=== PATIENT | female | born 1995 | race Two or more races ===

== ENCOUNTER 2024-05-28 08:03 | Emergency (ER) | payer OTHER ==
[~2024-05-28] VITALS: Ht 165.1 cm; Wt 72.6 kg
[2024-05-28 08:12] VITALS: BP 101/69; O2SAT 100
[2024-05-28 08:56] LABS: HEMATOCRIT 36.5 % (36.0-45.00); HEMOGLOBIN 12.4 g/dL (12.0-15.00); MEAN CELL VOLUME 93.8 fL (80.00-100.00); MEAN CORPUSCULAR HEMOGLOBIN 31.9 pg (27.00-32.0); PLATELET COUNT 183 K/uL (150-450); RED BLOOD COUNT 3.89 M/uL (4.00-6.00); RED CELL DISTRIBUTION WIDTH 12.8 % (11.5-14.5)
[2024-05-28 09:47] LABS: CALCIUM 8.8 mg/dL (8.5-10.1); CREATININE SERUM 0.67 mg/dL (0.55-1.02); GFR 104.06; POTASSIUM 3.69 mEq/L (3.5-5.1)
[2024-05-28 10:37] LABS: URINE APPEARANCE Clear; URINE BILIRRUBIN Negative (NEGATIVE); URINE BLOOD Moderate; URINE COLOR Yellow; URINE GLUCOSE Negative (NEGATIVE); URINE KETONE Negative (NEGATIVE); URINE LEUKOCYTE Trace; URINE NITRATE Negative; URINE PROTEIN Negative (NEGATIVE)
[2024-05-28 10:40] LABS: URINE BACTERIA 1702.5 uL (0.0-1933); URINE EPITHELIAL CELLS 14.2 uL (0.0-38.8); URINE RBC 9.7 uL (0.0-20.8); URINE WBC 20.4 uL (0.0-23.2)
[2024-05-28 10:55] LABS: URINE CAST 0.88 uL (0.0-1.40)
== END 2024-05-28 13:03 | disposition home or self-care (01) ==
LOC: ER 08:05
PROVIDERS: General Practice
DX: O20.8 Other hemorrhage in early pregnancy (principal); Z3A.01 Less than 8 weeks gestation of pregnancy

== ENCOUNTER 2024-06-01 15:10 | Emergency (ER) | payer OTHER ==
[~2024-06-01] VITALS: Ht 165.1 cm; Wt 72.6 kg
[2024-06-01 16:47] LABS: HEMATOCRIT 35.7 % (36.0-45.00); HEMOGLOBIN 12.3 g/dL (12.0-15.00); MEAN CELL VOLUME 93.5 fL (80.00-100.00); MEAN CORPUSCULAR HEMOGLOBIN 32.3 pg (27.00-32.0); MEAN CORPUSCULAR HGB CONC 34.5 g/dl (32.0-36.0); PLATELET COUNT 174 K/uL (150-450); RED BLOOD COUNT 3.82 M/uL (4.00-6.00); RED CELL DISTRIBUTION WIDTH 12.8 % (11.5-14.5)
[2024-06-01 17:15] LABS: PH,URINE 6.5 (5.0-8.0); URINE APPEARANCE Clear; URINE BILIRRUBIN Negative (NEGATIVE); URINE BLOOD Moderate; URINE COLOR Yellow; URINE GLUCOSE Negative (NEGATIVE); URINE KETONE Negative (NEGATIVE); URINE LEUKOCYTE Negative; URINE NITRATE Negative; URINE PROTEIN Negative (NEGATIVE)
[2024-06-01 17:19] LABS: URINE BACTERIA 108.9 uL (0.0-1933); URINE EPITHELIAL CELLS 2.2 uL (0.0-38.8); URINE RBC 3.2 uL (0.0-20.8); URINE WBC 2.6 uL (0.0-23.2)
== END 2024-06-01 18:56 ==
LOC: ER 15:12
PROVIDERS: General Practice
DX: O26.891 Other specified pregnancy related conditions, first trimester (principal); R10.2 Pelvic and perineal pain; O43.891 Other placental disorders, first trimester; Z3A.01 Less than 8 weeks gestation of pregnancy

== ENCOUNTER 2024-06-18 19:28 | Emergency (ER) | payer OTHER ==
[~2024-06-18] VITALS: Ht 165.1 cm; Wt 72.6 kg
[2024-06-18] MEDS ORDERED: PRENATE DHA SO1 EAC1 (20:26)
[2024-06-18 21:31] LABS: HEMATOCRIT 36.1 % (36.0-45.00); HEMOGLOBIN 12.1 g/dL (12.0-15.00); MEAN CELL VOLUME 94.3 fL (80.00-100.00); MEAN CORPUSCULAR HEMOGLOBIN 31.6 pg (27.00-32.0); MEAN CORPUSCULAR HGB CONC 33.5 g/dl (32.0-36.0); PLATELET COUNT 189 K/uL (150-450); RED BLOOD COUNT 3.83 M/uL (4.00-6.00); RED CELL DISTRIBUTION WIDTH 12.8 % (11.5-14.5)
== END 2024-06-18 23:39 | disposition home or self-care (01) ==
LOC: ER 19:28
PROVIDERS: General Practice
DX: O20.8 Other hemorrhage in early pregnancy (principal); Z3A.08 8 weeks gestation of pregnancy; N93.9 Abnormal uterine and vaginal bleeding, unspecified

== ENCOUNTER 2024-11-13 20:47 | Outpatient (CLI) | payer OTHER ==
[~2024-11-13] VITALS: Ht 165.1 cm; Wt 92.1 kg
[2024-11-13 20:15] VITALS: BP 111/75
[~2024-11-13 20:47] MED LIST: PRENATE DHA SO1 EAC1
[2024-11-13] MEDS ORDERED: MAGNESIUM SULFATE IN WATER 4 GM/100 ML PIGGYBACK IV SCH (21:15)
[2024-11-13] MEDS ORDERED: RINGERS SOLUTION,LACTATED 1,000 ML IV SCH (21:15)
[2024-11-13] MEDS ORDERED: MAGNESIUM SULFATE IN WATER 500 ML IV SCH (21:15)
[2024-11-13 22:09] LABS: BASO % 0.1 % (0.1-1.2); EOS # 0.04 (0.04-0.54); EOS % 0.5 % (0.7-7.0); LYMPH # 1.81 (1.18-3.74); LYMPH % 22.9 % (19.3-53.1); MEAN PLATELET VOLUME 10.80 fl (9.4-12.4); MONO # 0.69 (0.24-0.82); MONO % 8.7 % (4.7-12.5); NEUT # 5.34 (1.56-6.13); NEUT % 67.4 % (34.0-71.1); RED CELL DISTRIBUTION WIDTH 12.0 % (11.6-14.4)
[2024-11-13 22:40] LABS: INR < 0.93
[2024-11-13 23:10] VITALS: BP 108/75
[2024-11-14 03:24] VITALS: BP 96/58
[2024-11-14 06:13] VITALS: BP 92/58; O2SAT 97
[2024-11-14 11:04] VITALS: BP 98/59; O2SAT 97
[2024-11-14 15:20] VITALS: BP 110/71
== END 2024-11-14 16:33 | disposition home or self-care (01) ==
LOC: LDR 20:47 → O/R 20:47 → OBS/DEL 20:47 → O/R 11-14 13:21 → LDR 11-14 13:21 → O/R 11-14 14:38 → LDR 11-14 14:38 → OBS/DEL 11-14 16:33 → EDSTATUS 11-22 15:50 → OBS/DEL 11-22 16:02
PROVIDERS: ATTEND Obstetrics & Gynecology Gynecology
DX: O26.893 Other specified pregnancy related conditions, third trimester (principal); S30.0XXA Contusion of lower back and pelvis, initial encounter; V49.9XXA Car occupant (driver) (passenger) injured in unspecified traffic accident, initial encounter; Z3A.29 29 weeks gestation of pregnancy

== ENCOUNTER 2025-01-15 09:39 | Outpatient (CLI) | payer OTHER | END 2025-01-15 10:24 | disposition home or self-care (01) | LOC: NST 09:39 | PROVIDERS: ATTEND Obstetrics & Gynecology | DX: Z34.83 Encounter for supervision of other normal pregnancy, third trimester (principal) ==

== ENCOUNTER 2025-01-18 13:00 | Inpatient (IN) | payer OTHER ==
[~2025-01-18] VITALS: Ht 165.1 cm; Wt 98.0 kg
[2025-01-27] VITALS: BP 116/77
[2025-01-27] MEDS ORDERED: RINGERS SOLUTION,LACTATED 1,000 ML IV SCH (00:30)
[2025-01-27] MEDS ORDERED: MORPHINE SULFATE 4 MG/ML CARTRIDGE IV PRN (00:45)
[2025-01-27 01:00] LABS: BASO % 0.1 % (0.1-1.2); EOS # 0.03 (0.04-0.54); EOS % 0.4 % (0.7-7.0); LYMPH # 1.95 (1.18-3.74); LYMPH % 27.7 % (19.3-53.1); MEAN PLATELET VOLUME 11.20 fl (9.4-12.4); MONO # 0.61 (0.24-0.82); MONO % 8.7 % (4.7-12.5); NEUT # 4.42 (1.56-6.13); NEUT % 62.8 % (34.0-71.1); RED CELL DISTRIBUTION WIDTH 13.8 % (11.6-14.4)
[2025-01-27 01:17] LABS: ALT/SGPT 16.0 U/L (12-78); AST/SGOT 10.0 U/L (15-37); BILIRUBIN TOTAL 0.24 mg/dL (0.3-1.2); BUN CREA RATIO 18.0 (7.0-25.0); CREATININE SERUM 0.6 mg/dL (0.55-1.02); GFR 117.38; GLOBULINA 3.7 G/DL (2.4-3.5); GLUCOSE FASTING 82.0 mg/dL (65-100); INR < 0.93; OSMOLALITY SERUM 278.0 MOSM/KG (275-295)
[2025-01-27 03:27] VITALS: BP 115/57
[2025-01-27 07:15] VITALS: BP 138/69
[2025-01-27] MEDS ORDERED: OXYTOCIN 20 UNITS/1000ML RL PIGGYBAG IV ONE (09:28)
[2025-01-27] MEDS ORDERED: ERYTHROMYCIN BASE OPHT 1GM EACH TUBE OP ONE ×2 (09:28→13:06)
[2025-01-27] MEDS ORDERED: CHLORHEXIDINE GLUCONATE 120 ML BOTTLE TOP ONE (09:29)
[2025-01-27] MEDS ORDERED: LIDOCAINE HCL 1% 10ML VIAL ONE (09:29)
[2025-01-27] MEDS ORDERED: OXYTOCIN 500 ML IV ONE (09:45)
[2025-01-27 12:00] VITALS: BP 120/60
[2025-01-27] MEDS ORDERED: OXYTOCIN 10 UNITS/ML VIAL ONE ×2 (13:05→15:53)
[2025-01-27] MEDS ORDERED: METHYLERGONOVINE MALEATE 0.2 MG/ML AMPUL ONE (14:11)
[2025-01-27] MEDS ORDERED: ACETAMINOPHEN 325 MG TABLET PO SCH (14:36)
[2025-01-27] MEDS ORDERED: KETOROLAC TROMETHAMINE 30 MG VIAL IV SCH (14:36)
[2025-01-27] MEDS ORDERED: OXYTOCIN 1,000 ML IV SCH (14:45)
[2025-01-27] MEDS ORDERED: MORPHINE SULFATE 4 MG/ML VIAL IV PRN (14:45)
[2025-01-27] MEDS ORDERED: KETOROLAC TROMETHAMINE 30 MG VIAL IV NR (14:45)
[2025-01-27] MEDS ORDERED: KETOROLAC TROMETHAMINE 30 MG VIAL ONE (15:52)
[2025-01-27 17:19] VITALS: BP 117/73
[2025-01-27 23:38] VITALS: BP 110/73
[2025-01-28 06:17] VITALS: BP 108/72
[2025-01-28 08:48] VITALS: BP 110/75
[2025-01-28 11:20] LABS: BASO % 0.2 % (0.1-1.2); EOS # 0.00 (0.04-0.54); EOS % 0.0 % (0.7-7.0); LYMPH # 1.36 (1.18-3.74); LYMPH % 13.4 % (19.3-53.1); MEAN PLATELET VOLUME 11.10 fl (9.4-12.4); MONO # 0.56 (0.24-0.82); MONO % 5.5 % (4.7-12.5); NEUT # 8.14 (1.56-6.13); NEUT % 80.5 % (34.0-71.1); RED CELL DISTRIBUTION WIDTH 14.4 % (11.6-14.4)
[2025-01-28 13:40] VITALS: BP 114/70
[2025-01-28 17:21] VITALS: BP 109/73
[2025-01-29] VITALS: BP 131/86
[2025-01-29] MEDS ORDERED: OxyCODONE HCL 5 MG TABLET (ROXICODONE) PO PRN (06:00)
[2025-01-29 10:36] VITALS: BP 110/76
[2025-01-29 16:14] VITALS: BP 124/84
[2025-01-30] VITALS: BP 109/73
[2025-01-30 08:00] VITALS: BP 112/75
[2025-01-30 16:15] VITALS: BP 118/65
== END 2025-01-30 18:06 | disposition home or self-care (01) | DRG 788 ==
LOC: LDR 01-27 00:15 → OB/GYN 01-27 00:15
PROVIDERS: ADMIT Obstetrics & Gynecology; ATTEND Obstetrics & Gynecology
PROC: 4A1HXCZ Monitoring of Products of Conception, Cardiac Rate, External Approach (ICD-10-PCS; 2025-01-27)
PROC: 10D00Z1 Extraction of Products of Conception, Low, Open Approach (ICD-10-PCS; principal; 2025-01-27 12:45)
DX: O33.8 Maternal care for disproportion of other origin (principal); Z3A.38 38 weeks gestation of pregnancy; Z37.0 Single live birth